=== PATIENT | female | born 1960 | race Caucasian/White ===

== ENCOUNTER 2018-08-20 22:04 | Emergency (ER) | payer MEDICARE, MEDICAID ==
[~2018-08-20] VITALS: Ht 162.6 cm; Wt 95.0 kg
[~2018-08-20 22:04] MED LIST: BARIATRIC MULTI VIT PO; CALC-1051 PO; CAR30T PO; CEPH-571 PO; CYAN100070 PO; FERR1TAB6 PO; LORA-512 PO; NITR0.4T51 SL; OMEP-84 PO; OXYC30TA85 PO; PROP40TA72 PO
[2018-08-21 00:10] VITALS: BP 137/79
[2018-08-21] MEDS ORDERED: LEVO750T21 PO (00:55)
[2018-08-21] MEDS ORDERED: levoFLOXACIN 750MG TABLET PO ONE (00:55)
== END 2018-08-21 01:29 | disposition home or self-care (01) ==
LOC: ER 22:04
DX: J18.9 Pneumonia, unspecified organism (principal); R50.9 Fever, unspecified; G43.909 Migraine, unspecified, not intractable, without status migrainosus; G47.30 Sleep apnea, unspecified; K21.9 Gastro-esophageal reflux disease without esophagitis; G89.29 Other chronic pain; Z95.1 Presence of aortocoronary bypass graft; Z79.899 Other long term (current) drug therapy
CPT/HCPCS: 71045; 93005; 99283

== ENCOUNTER 2022-11-27 19:40 | Emergency (ER) | payer MEDICARE, MEDICAID ==
[~2022-11-27] VITALS: Ht 162.6 cm; Wt 103.0 kg
[~2022-11-27 19:40] MED LIST changes: +ALBU18HF2 INH
[2022-11-27 20:00] LABS: BASOPHILS % (AUTO) 0.4 % (0-1); EOSINOPHILS # (AUTO) 0.2 X10'3 (0-0.9); EOSINOPHILS % (AUTO) 2.8 % (0-6); HEMATOCRIT 35.8 % (35.0-45.0); HEMOGLOBIN 11.4 g/dl (12.0-16.0); LYMPHOCYTES # (AUTO) 1.3 X10'3 (1.1-4.8); LYMPHOCYTES % (AUTO) 21.5 % (21-51); MEAN CORPUSCULAR HEMOGLOBIN 24.8 PG (27.0-31.0); MEAN CORPUSCULAR HGB CONC 31.9 g/dL (33.0-36.5); MEAN CORPUSCULAR VOLUME 77.8 FL (78-98); MEAN PLATELET VOLUME 6.7 FL (7.4-10.4); MONOCYTES # (AUTO) 0.4 X10'3 (0-0.9); MONOCYTES % (AUTO) 7.1 % (2-12); NEUTROPHILS # (AUTO) 4.1 X10'3 (1.8-7.7); NEUTROPHILS % (AUTO) 68.2 % (42-75); PLATELET COUNT 330 X10'3 (140-440); RED CELL DISTRIBUTION WIDTH 17.1 % (11.5-14.5)
[2022-11-27 20:22] LABS: ALANINE AMINOTRANSFERASE 31 U/L (12-78); ALBUMIN 3.7 G/DL (3.4-5.0); ALBUMIN/GLOBULIN RATIO 1.2 (1.1-1.5); ALKALINE PHOSPHATASE 111 IU/L (46-116); ANION GAP 7 (8-16); ASPARTATE AMINO TRANSFERASE 30 U/L (10-37); BILIRUBIN,TOTAL 0.2 MG/DL (0.1-1.0); BLOOD UREA NITROGEN 14 MG/DL (7-18); BUN/CREATININE RATIO 15.6 (10.0-20.0); CHLORIDE 106 MMOL/L (99-107); GLUCOSE 113 MG/DL (70-104); POTASSIUM 3.7 MMOL/L (3.5-5.1); SODIUM 142 MMOL/L (135-145); TOTAL CARBON DIOXIDE 28.6 MMOL/L (24-32); TOTAL PROTEIN 6.8 G/DL (6.4-8.2); eGFR 63 ML/MIN
--- NOTE | 2022-11-27 22:00 | NUR ---
PT ASKING TO SEE PROVIDER, DR BARGER AWARE
[2022-11-27 22:11] LABS: LIPASE < 50 U/L (73-393)
--- NOTE | 2022-11-27 22:15 | NUR ---
PT HAS BEEN SEEN BY DR BARGER AND WISHES TO LEAVE AMA. PT IS AWARE OF RISKS UP TO AND INCLUDING OF LEAVING AMA, SHE VERBALIZED UNDERSTANDING. PT AWARE TO FOLLOW UP WITH HER PMD AND COME BACK TO ER ANY TIME. NO QUESTIONS, PT AMB WITH STEADY GAIT TO LOBBY, HAS RIDE HOME WITH
[2022-11-27 22:44] VITALS: BP 133/74
[2022-11-30] MEDS ORDERED: ROPI0.5T4 PO (02:59)
[2022-11-30] MEDS ORDERED: LORA10TA65 PO (02:59)
[2022-11-30] MEDS ORDERED: HYDR-3973 PO (03:01)
== END 2022-11-27 22:15 | disposition left against medical advice (07) ==
LOC: ER 19:41
DX: R07.9 Chest pain, unspecified (principal); R53.83 Other fatigue
CPT/HCPCS: 36415; 71045; 80053; 83690; 83880; 84484; 85025; 99285